=== PATIENT | male | born 1960 | race African-American/Black ===

== ENCOUNTER 2017-03-02 08:43 | Emergency (ER) | payer MEDICARE ==
[~2017-03-02] VITALS: Ht 170.2 cm; Wt 65.0 kg
[2017-03-02 08:46] VITALS: BP 160/90
[2017-03-02] MEDS ORDERED: CEFTRIAXONE 250 MG ONE (10:20)
[2017-03-02] MEDS ORDERED: AZITHROMYCIN 250 MG TABLET ONE (10:20)
[2017-03-02] MEDS ORDERED: CEFTRIAXONE 1,000 MG IM ONE (10:30)
[2017-03-02] MEDS ORDERED: AZITHROMYCIN 500 MG TABLET PO ONE (10:30)
== END 2017-03-02 10:35 | disposition home or self-care (01) ==
LOC: ED 09:14
DX: A64 Unspecified sexually transmitted disease (principal)
CPT/HCPCS: 81003; 87491; 87591; 96372; 99284; J0696